=== PATIENT | male | born 1970 | race African-American/Black ===

== ENCOUNTER 2020-03-24 12:14 | Inpatient (IN) | payer SELFPAY ==
--- NOTE | 2020-03-24 12:54 | BHS.RME ---
Substance Use & Tx History - Substance Use History Heroin Substance amount: 10 bags Frequency of use: Daily Substance route: Inhalation (ex: sniffing or snorting) Date of Last Use: 03/23/20 (started age 29) Cocaine-Crack Substance amount: $50 Frequency of use: Daily Substance route: Smoking Date of Last Use: 03/23/20 (started age 25) Nicotine Substance amount: 1/2 pack Frequency of use: Daily Substance route: Smoking Date of Last Use: 03/24/20 (started age 16)
--- NOTE | 2020-03-24 14:23 | HP ---
COWS - Scale Resting Pulse: 0= CT 80 or Below Sweatin= Chills/Flushing Restless Observation: 1= Difficult to Sit Still Pupil Size: 1= Pupils >than Normal Bone or Joint Aches: 2= Severe Diffuse Aches Runny Nose/ Eye Tearin= Runny Nose/Eyes GI Upset > 30mins: 2= Nausea/Diarrhea Tremor Observation: 0= None Yawning Observation: 2= >3x During Session Anxiety or Irritability: 1=Feels Anxious/Irritable Goose Flesh Skin: 3=Piloerection COWS Score: 15 CIWA Score - Admission Criteria OASAS Guidelines: Admission for Medically Managed Detox: Requires at least one of the followin. CIWA greater than 12 2. Seizures within the past 24 hours 3. Delirium tremens within the past 24 hours 4. Hallucinations within the past 24 hours 5. Acute intervention needed for co occurring medical disorder 6. Acute intervention needed for co occurring psychiatric disorder 7. Severe withdrawal that cannot be handled at a lower level of care (continued vomiting, continued diarrhea, abnormal vital signs) requiring intravenous medication and/or fluids 8. Admitting History and Physical - Admission Chief Complaint: Pt is a 50 yo M presenting for detox from opioids; "detox from heroin." History of Present Illness: Pt is a 50 yo M presenting for detox from opioids; "detox from heroin." Pt has never been to [facility] before. Pt has been to several detox centers in the last 5 years; most recently you went to a detox in [place] in August. He completed detox and did not go to rehab after. Pt reports being sober for about 5 months; relapsed in January. Relapse was not triggered by any specific stressor or environment; pt reports "I just wanted to get high again." Pt reports that he is not in a methadone program; he occasionally buys methadone off the street (i.e. used methadone off the street this past Friday). Pt reports no overdoses in the past and does have Narcan at home. PMH - T2DM (metformin; possibly one more medication; takes medications regularly), HLD , HCV (dx 2007; treatment completed; pt reports it did not resolve the infection and that he needs to follow up with his infectious disease doctor about being treated again) PSH - none Psych - Bipolar Disorder, Chronic Depression (Prozac, Seroquel) Soc/Domiciled - lives with sister; without his own home currently Legal - none - Substance Use History Heroin Substance amount: 10 bags Frequency of use: Daily Substance route: Inhalation (ex: sniffing or snorting) Date of Last Use: 03/23/20 (started age 29) Cocaine-Crack Substance amount: $50 Frequency of use: Daily Substance route: Smoking Date of Last Use: 03/23/20 (started age 25) Nicotine Substance amount: 1/2 pack Frequency of use: Daily Substance route: Smoking Date of Last Use: 03/24/20 (started age 16) History Source: Patient Limitations to Obtaining History: No Limitations - Past Medical History Endocrine: Yes: Diabetes Mellitus Admission ROS [facility] - Ebola screening Have you traveled outside of the country in the last 21 days: No Have you been sick,other than usual withdrawal symptoms: No Do you have a fever: No - Review of Systems Constitutional: Chills, Diaphoresis, Changes in sleep (insomnia), Weakness (generalized weakness and faitgue), Unintentional Wgt. Loss (50 lbs over the last 2 years) EENT: reports: Nose Congestion, Other (rhinorrhea/lacrimation) Respiratory: reports: No Symptoms reported Cardiac: reports: No Symptoms Reported GI: reports: Diarrhea, Nausea, Abdominal cramping : reports: No Symptoms Reported Musculoskeletal: reports: Muscle Pain (diffuse muscle aches; mostly localized to arms) Integumentary: reports: No Symptoms Reported Neuro: reports: Other (piloerection) Endocrine: reports: No Symptoms Reported Hematology: reports: No Symptoms Reported Psychiatric: reports: Orientated x3, Agitated (restless), Anxious, Depressed (chronic) Patient History - Smoking Cessation Smoking history: Current every day smoker Have you smoked in the past 12 months: Yes Aproximately how many cigarettes per day: 10 Initiated information on smoking cessation: Yes 'Breaking Loose' booklet given: 03/24/20 Admission Physical Exam [facility] - Vital Signs Vital Signs: BP 130/82 HR 72 RR 20 T 97.4 O2 sat 99% - Physical General Appearance: Yes: No Apparent Distress, Nourished, Appropriately Dressed, Anxious HEENTM: Yes: EOMI, Hearing grossly Normal, Normocephalic, Normal Voice Respiratory: Yes: Lungs Clear, Normal Breath Sounds, No Respiratory Distress, No Accessory Muscle Use Neck: Yes: Supple, Trachea in good position Breast: Yes: Breast Exam Deferred Cardiology: Yes: Regular Rhythm, Regular Rate Abdominal: Yes: Normal Bowel Sounds, Non Tender, Flat, Soft Genitourinary: Yes: Other (deferred) Back: Yes: Normal Inspection Musculoskeletal: Yes: Gait Steady, Pelvis Stable Extremities: Yes: Normal Inspection, Normal Range of Motion, Non-Tender Neurological: Yes: Fully Oriented, Alert, Motor Strength 5/5, Normal Mood/Affect, Normal Response Integumentary: Yes: Normal Color, Dry, Warm, Other (piloerection) - Diagnostic (1) Opioid dependence Current Visit: Yes Status: Acute Qualifiers: Substance use status: in withdrawal Qualified Code(s): F11.23 - Opioid dependence with withdrawal (2) Cocaine dependence Current Visit: Yes Status: Acute Qualifiers: Substance use status: uncomplicated Qualified Code(s): F14.20 - Cocaine dependence, uncomplicated (3) Nicotine dependence Current Visit: Yes Status: Acute Qualifiers: Nicotine product type: cigarettes Substance use status: uncomplicated Qualified Code(s): F17.210 - Nicotine dependence, cigarettes, uncomplicated (4) HCV (hepatitis C virus) Current Visit: Yes Status: Acute Qualifiers: Viral hepatitis chronicity: unspecified Hepatic coma status: without hepatic coma Qualified Code(s): B19.20 - Unspecified viral hepatitis C without hepatic coma Comment: pt completed treatment but infection not resolved; reports he needs to follow up to be re-treated (5) Type 2 diabetes mellitus Current Visit: Yes Status: Chronic Qualifiers: Diabetes mellitus ferry terminal supervisor insulin use: without mcfp use Diabetes mellitus complication status: without complication Qualified Code(s): E11.9 - Type 2 diabetes mellitus without complications Cleared for Admission S - Detox or Rehab [facility] Level of Care: Medically Managed Detox Regimen/Protocol: Methadone Breathalyzer - Breathalyzer Breathalyzer: 0 Urine Drug Screen - Test Device Lot number: [id number] Expiration date: 09/21/21 - Control Is test valid?: Yes - Results Drug screen NEGATIVE: No Urine drug screen results: THC-Marijuana, SHANNON-Cocaine, FEN-Fentanyl, MOP-Opiates , MTD-Methadone Inpatient Rehab Admission - Rehab Decision to Admit Inpatient rehab admission?: No
[2020-03-24] MEDS ORDERED: MAGNESIUM HYDROX 2400MG/30ML ORAL SUSPENSION 30 ML CUP PO PRN (14:39)
[2020-03-24] MEDS ORDERED: IBUPROFEN 400 MG TABLET (FP) PO PRN (14:39)
[2020-03-24] MEDS ORDERED: BISMUTH SUBSALICYLATE 524 MG/30 ML UD PO PRN (14:39)
[2020-03-24] MEDS ORDERED: ACETAMINOPHEN 325 MG TABLET (FP) PO PRN ×2 (14:39)
[2020-03-24] MEDS ORDERED: ONDANSETRON *ODT* 4 MG TABLET SL PRN (14:39)
[2020-03-24] MEDS ORDERED: METHOCARBAMOL 500 MG TABLET PO PRN (14:39)
[2020-03-24] MEDS ORDERED: cloNIDine HCL 0.1 MG TABLET PO PRN (14:39)
[2020-03-24] MEDS ORDERED: NICOTINE POLACRILEX 2 MG GUM BUC PRN (14:39)
[2020-03-24] MEDS ORDERED: MAG HYDROX/AL HYDROX/SIMETH 30 ML UNIT-DOSE CUP PO PRN (14:39)
[2020-03-24] MEDS ORDERED: MENTHOL/PHENOL 1 EACH UD MM PRN (14:39)
[2020-03-24] MEDS ORDERED: MAGNESIUM CITRATE 300 ML BOTTLE PO PRN (14:39)
[2020-03-24 15:18] VITALS: BMI 19.5
--- OUTSIDE RECORDS SUMMARY | 2020-03-24 15:56 | XMS ---
:1970 Author Organization [facility] Support Name Relationship Address Phone UE Unavailable Unavailable Unavailable ANNA MURRAY SISTER [address] [place] [address] Re-disclosure Warning The records that you are about to access may contain information from federally- assisted alcohol or drug abuse programs. If such information is present, then the following federally mandated warning applies: This information has been disclosed to you from records protected by federal confidentiality rules (42 CFR part 2). The federal rules prohibit you from making any further disclosure of this information unless further disclosure is expressly permitted by the written consent of the person to whom it pertains or as otherwise permitted by 42 CFR part 2. A general authorization for the release of medical or other information is NOT sufficient for this purpose. The Federal rules restrict any use of the information to criminally investigate or prosecute any alcohol or drug abuse patient.The records that you are about to access may contain highly sensitive health information, the redisclosure of which is protected by Article 27-F of the [facility] Public Health law. If you continue you may haveaccess to information: Regarding HIV / AIDS; Provided by facilities licensed or operated by the [facility] Office of Mental Health; or Provided by the [facility] Office for People With Developmental Disabilities. If such information is present, then the following [facility] mandated warning applies: This information has been disclosed to you from confidential records which are protected by state law. State law prohibits you from making any further disclosure of this information without the specific written consent of the person to whom it pertains, or as otherwise permitted by law. Any unauthorized further disclosure in violation of state law may result in a fine or penitentiary sentence or both. A general authorization for the release of medical or other information is NOT sufficient authorization for further disclosure. Insurance Providers Payer name Policy type Policy ID Covered Covered alliance party's Policy P tere / Coverage alliance party ID relationship to Marcus Inf ormation type marcus [facility] [id number]
[2020-03-24] MEDS ORDERED: METHADONE HCL 10 MG TABLET (FOR DETOX USE ONLY) PO ONE (16:00)
[2020-03-24 16:25] LABS: HEMATOCRIT 46.9 % (35.4-49); HEMOGLOBIN 15.8 GM/dL (11.7-16.9); MCH 30.9 pg (25.7-33.7); MCHC 33.7 g/dl (32.0-35.9); MEAN CELL VOLUME 91.6 fl (80-96); MEAN PLT VOLUME 8.7 fl (7.5-11.1); PLATELET COUNT 167 K/MM3 (134-434); RBC 5.12 M/mm3 (4.00-5.60); RDW 13.4 % (11.9-15.9); WHITE BLOOD COUNT 5.8 K/mm3 (4.0-10.0)
[2020-03-24 16:36] LABS: BILIRUBIN,TOTAL 0.6 mg/dL (0.2-1); BLOOD UREA NITROGEN 13.5 mg/dL (7-18); CALCIUM 9.3 mg/dL (8.5-10.1); CREATININE 0.7 mg/dL (0.55-1.3); POTASSIUM 4.2 mmol/L (3.5-5.1); TOT PROT 7.8 g/dl (6.4-8.2)
[2020-03-24] MEDS: metFORMIN HCL 500 MG TABLET (FP) PO SCH (17:40)
[2020-03-24] MEDS: hydrOXYzine PAMOATE 25 MG CAPSULE (FP) PO SCH ×2 (17:40→22:57)
[2020-03-24] MEDS: NICOTINE 14 MG/24 HOURS TOPICAL PATCH TD SCH (17:41)
[2020-03-24] MEDS: THIAMINE HCL 100 MG TABLET (FP) PO SCH (22:57)
[2020-03-24] MEDS: MELATONIN 5 MG TABLETS PO SCH (22:58)
[2020-03-25] MEDS: hydrOXYzine PAMOATE 25 MG CAPSULE (FP) PO SCH ×5 (06:50→23:20)
[2020-03-25] MEDS: metFORMIN HCL 500 MG TABLET (FP) PO SCH ×2 (06:50→18:03)
--- NOTE | 2020-03-25 08:17 | EKG ---
Test Reason : Blood Pressure : / mmHG Vent. Rate : 064 BPM Atrial Rate : 064 BPM P-R Int : 148 ms QRS Dur : 074 ms QT Int : 448 ms P-R-T Axes : 072 057 059 degrees QTc Int : 462 ms NORMAL SINUS RHYTHM POSSIBLE LEFT ATRIAL ENLARGEMENT BORDERLINE ECG NO PREVIOUS ECGS AVAILABLE Confirmed by Hillary Leiva ([id number]) on 03/25/2020 8:16:46 AM Referred By: Confirmed By:Hillary Leiva
[2020-03-25] MEDS ORDERED: METHADONE HCL 10 MG TABLET (FOR DETOX USE ONLY) ONE (09:53)
[2020-03-25] MEDS ORDERED: METHADONE HCL 5 MG TABLET (FOR DETOX USE ONLY) ONE (09:53)
[2020-03-25] MEDS ORDERED: PRENATAL VITAMINS W/ FOLIC ACID TABLET (FP) PO SCH (10:00)
[2020-03-25] MEDS ORDERED: METHADONE (DETOX) 20 MG, METHADONE (DETOX) 5 MG PO ONE (10:00)
[2020-03-25] MEDS: NICOTINE 14 MG/24 HOURS TOPICAL PATCH TD SCH (10:45)
--- NOTE | 2020-03-25 11:54 | PN ---
BHS COWS - Scale Resting Pulse: 0= TN 80 or Below Sweatin= Chills/Flushing Restless Observation: 1= Difficult to Sit Still Pupil Size: 0= Normal to Room Light Bone or Joint Aches: 2= Severe Diffuse Aches Runny Nose/ Eye Tearin= None GI Upset > 30mins: 0= None Tremor Observation of Outstretched Hands: 2= Slight Tremor Visible Yawning Observation: 2= >3x During Session Anxiety or Irritability: 2=Irritable/Anxious Goose Flesh Skin: 0=Smooth Skin COWS Score: 10 BHS Progress Note (SOAP) Subjective: c/o chills, anxiety, muscle aches, and irritability. Objective: 03/25/20 11:53 Vital Signs 03/25/20 03/25/20 05:33 09:00 Temperature 98.2 F 98.4 F Pulse Rate 65 71 Respiratory 16 18 Rate Blood Pressure 129/83 130/89 O2 Sat by Pulse 100 Oximetry (%) Laboratory Last Values WBC 5.8 K/mm3 (4.0-10.0) 03/24/20 15:15 RBC 5.12 M/mm3 (4.00-5.60) 03/24/20 15:15 Hgb 15.8 GM/dL (11.7-16.9) 03/24/20 15:15 Hct 46.9 % (35.4-49) 03/24/20 15:15 MCV 91.6 fl (80-96) 03/24/20 15:15 MCH 30.9 pg (25.7-33.7) 03/24/20 15:15 MCHC 33.7 g/dl (32.0-35.9) 03/24/20 15:15 RDW 13.4 % (11.9-15.9) 03/24/20 15:15 Plt Count 167 K/MM3 (134-434) 03/24/20 15:15 MPV 8.7 fl (7.5-11.1) 03/24/20 15:15 Sodium 136 mmol/L (136-145) 03/24/20 15:15 Potassium 4.2 mmol/L (3.5-5.1) 03/24/20 15:15 Chloride 100 mmol/L (98-107) 03/24/20 15:15 Carbon Dioxide 30 mmol/L (21-32) 03/24/20 15:15 Anion Gap 6 MMOL/L (8-16) L 03/24/20 15:15 BUN 13.5 mg/dL (7-18) 03/24/20 15:15 Creatinine 0.7 mg/dL (0.55-1.3) 03/24/20 15:15 Est GFR (CKD-EPI)AfAm 129.34 03/24/20 15:15 Est GFR (CKD-EPI)NonAf 111.59 03/24/20 15:15 POC Glucometer 106 UNITS (80-120) 03/25/20 11:27 Random Glucose 63 mg/dL (74-106) L 03/24/20 15:15 Calcium 9.3 mg/dL (8.5-10.1) 03/24/20 15:15 Total Bilirubin 0.6 mg/dL (0.2-1) 03/24/20 15:15 AST 47 U/L (15-37) H 03/24/20 15:15 ALT 63 U/L (13-61) H 03/24/20 15:15 Alkaline Phosphatase 94 U/L (45-117) 03/24/20 15:15 Total Protein 7.8 g/dl (6.4-8.2) 03/24/20 15:15 Albumin 4.0 g/dl (3.4-5.0) 03/24/20 15:15 Syphilis Serology Non-reactive (NONREACTIVE) 03/24/20 15:15 Labs noted. Assessment: 03/25/20 11:54 AOX3, in no acute respiratory distress. Full ROM, ambulating in the unit. Withdrawal symptoms. Plan: continue detox.
--- NOTE | 2020-03-25 14:09 | CONSULT ---
[facility] Psychiatric Consult - Data Date of interview: 03/25/20 Admission source: [facility] Identifying data: Backup Administrative Coordinator approached patient twice for psychiatric consultation. On both occasions patient stated to specification writer, " I'm tired. I don't want to talk now." Psychiatric consultation refused. Please order another psychiatric consultation if requested by patient.
[2020-03-25] MEDS ORDERED: MASKS NR ONE (19:10)
--- NOTE | 2020-03-25 19:47 | DS ---
[facility] Detox Discharge Summary Admission Date: 03/24/20 Discharge Date: 03/25/20 (Administrative Discharge) - History Additional Comments: As per H&P "Pt is a 50 yo M presenting for detox from opioids; "detox from heroin." Pt has never been to [facility] before. Pt has been to several detox centers in the last 5 years; most recently you went to a detox in [place] in August. He completed detox and did not go to rehab after. Pt reports being sober for about 5 months; relapsed in January. Relapse was not triggered by any specific stressor or environment; pt reports "I just wanted to get high again." Pt reports that he is not in a methadone program; he occasionally buys methadone off the street (i.e. used methadone off the street this past Friday). Pt reports no overdoses in the past and does have Narcan at home. PMH - T2DM (metformin; possibly one more medication; takes medications regularly), HLD , HCV (dx 2007; treatment completed; pt reports it did not resolve the infection and that he needs to follow up with his infectious disease doctor about being treated again) PSH - none Psych - Bipolar Disorder, Chronic Depression (Prozac, Seroquel) Soc/Domiciled - lives with sister; without his own home currently". I was called to see this pt who was acting aggressive and requesting to go home. Condition 10 was called and upon arrival to the unit, this medical technical writer observed pt being very disruptive on the unit, screaming, throwing stuff (BP machine), and banging on the doors that he wants to leave. As per staff sonographer, pt requested for wipes and got upset whilst on the phone and threw the phone on the floor. Nursing motorcycle repair shop supervisor instructed a tech to call 911 which was done immediately. While waiting for the police to get there, pt went to another pt's room trying to break the window to get out, where [facility] security officers intervened. Pt opened the entrance door of the unit trying to leave, [facility] security officers intervened again and held him down to the floor until the [place] got there. Unable to perform any Physical examination due to pt's disruptive and aggressive behavior. Pertinent Past History: h/o heroin and cocaine use disorder. - Physical Exam Results Vital Signs: Vital Signs Temperature 98.1 F 03/25/20 16:56 Pulse Rate 67 03/25/20 16:56 Respiratory Rate 17 03/25/20 16:56 Blood Pressure 119/81 03/25/20 16:56 O2 Sat by Pulse Oximetry (%) 100 03/25/20 12:38 Vital Signs 03/25/20 03/25/20 12:38 16:56 Temperature 97.3 F L 98.1 F Pulse Rate 84 67 Respiratory 18 17 Rate Blood Pressure 120/85 119/81 O2 Sat by Pulse 100 Oximetry (%) Laboratory Last Values WBC 5.8 K/mm3 (4.0-10.0) 03/24/20 15:15 RBC 5.12 M/mm3 (4.00-5.60) 03/24/20 15:15 Hgb 15.8 GM/dL (11.7-16.9) 03/24/20 15:15 Hct 46.9 % (35.4-49) 03/24/20 15:15 MCV 91.6 fl (80-96) 03/24/20 15:15 MCH 30.9 pg (25.7-33.7) 03/24/20 15:15 MCHC 33.7 g/dl (32.0-35.9) 03/24/20 15:15 RDW 13.4 % (11.9-15.9) 03/24/20 15:15 Plt Count 167 K/MM3 (134-434) 03/24/20 15:15 MPV 8.7 fl (7.5-11.1) 03/24/20 15:15 Sodium 136 mmol/L (136-145) 03/24/20 15:15 Potassium 4.2 mmol/L (3.5-5.1) 03/24/20 15:15 Chloride 100 mmol/L (98-107) 03/24/20 15:15 Carbon Dioxide 30 mmol/L (21-32) 03/24/20 15:15 Anion Gap 6 MMOL/L (8-16) L 03/24/20 15:15 BUN 13.5 mg/dL (7-18) 03/24/20 15:15 Creatinine 0.7 mg/dL (0.55-1.3) 03/24/20 15:15 Est GFR (CKD-EPI)AfAm 129.34 03/24/20 15:15 Est GFR (CKD-EPI)NonAf 111.59 03/24/20 15:15 POC Glucometer 135 UNITS (80-120) 03/25/20 16:35 Random Glucose 63 mg/dL (74-106) L 03/24/20 15:15 Calcium 9.3 mg/dL (8.5-10.1) 03/24/20 15:15 Total Bilirubin 0.6 mg/dL (0.2-1) 03/24/20 15:15 AST 47 U/L (15-37) H 03/24/20 15:15 ALT 63 U/L (13-61) H 03/24/20 15:15 Alkaline Phosphatase 94 U/L (45-117) 03/24/20 15:15 Total Protein 7.8 g/dl (6.4-8.2) 03/24/20 15:15 Albumin 4.0 g/dl (3.4-5.0) 03/24/20 15:15 Syphilis Serology Non-reactive (NONREACTIVE) 03/24/20 15:15 Pertinent Admission Physical Exam Findings: withdrawal symptoms. - Treatment Hospital Course: Detox Protocol Followed - Medication Discharge Medications: Ambulatory Orders Fluoxetine HCl [Prozac -] 20 mg PO DAILY 03/24/20 Metformin HCl [Glucophage] 1,000 mg PO BID 03/24/20 Quetiapine Fumarate [Seroquel -] 100 mg PO HS 03/24/20 - Diagnosis (1) Cocaine dependence Current Visit: Yes Status: Acute Qualifiers: Substance use status: uncomplicated Qualified Code(s): F14.20 - Cocaine dependence, uncomplicated (2) Nicotine dependence Current Visit: Yes Status: Chronic Qualifiers: Nicotine product type: cigarettes Substance use status: uncomplicated Qualified Code(s): F17.210 - Nicotine dependence, cigarettes, uncomplicated (3) Opioid dependence Current Visit: Yes Status: Acute Qualifiers: Substance use status: in withdrawal Qualified Code(s): F11.23 - Opioid dependence with withdrawal (4) Type 2 diabetes mellitus Current Visit: Yes Status: Chronic Qualifiers: Diabetes mellitus watermelon inspector insulin use: without care home use Diabetes mellitus complication status: without complication Qualified Code(s): E11.9 - Type 2 diabetes mellitus without complications - AMA Did Patient Leave Against Medical Advice: No (Pt was discharged administ ratively.)
[2020-03-25 22:03] VITALS: BP 119/81; PULSE 67; TEMP 98.1
[2020-03-25] MEDS: THIAMINE HCL 100 MG TABLET (FP) PO SCH (23:20)
[2020-03-25] MEDS: MELATONIN 5 MG TABLETS PO SCH (23:20)
[2020-03-26] MEDS ORDERED: METHADONE HCL 10 MG TABLET (FOR DETOX USE ONLY) PO ONE (10:00)
[2020-03-27] MEDS ORDERED: METHADONE (DETOX) 10 MG, METHADONE (DETOX) 5 MG PO ONE (10:00)
--- NOTE | 2020-03-27 11:07 | PN ---
Teaching Attending Note Name of Resident: Yuridia Conner ATTENDING PHYSICIAN STATEMENT I saw and evaluated the patient. I reviewed the resident's note and discussed the case with the resident. I agree with the resident's findings and plan as documented. SUBJECTIVE: OBJECTIVE: ASSESSMENT AND PLAN: 1. Methadone detox protocol
[2020-03-28] MEDS ORDERED: METHADONE HCL 10 MG TABLET (FOR DETOX USE ONLY) PO ONE (10:00)
[2020-03-29] MEDS ORDERED: METHADONE HCL 5 MG TABLET (FOR DETOX USE ONLY) PO ONE (06:00)
== END 2020-03-25 19:15 | disposition home or self-care (01) | DRG 773 ==
LOC: YASAS 12:14 → Y3N 15:44
PROVIDERS: ADMIT Allergy & Immunology; ATTEND Allergy & Immunology
PROC: HZ2ZZZZ Detoxification Services for Substance Abuse Treatment (ICD-10-PCS; principal; 2020-03-24)
DX: F11.23 Opioid dependence with withdrawal (principal); F14.20 Cocaine dependence, uncomplicated; F17.210 Nicotine dependence, cigarettes, uncomplicated; F31.9 Bipolar disorder, unspecified; E78.5 Hyperlipidemia, unspecified; E11.9 Type 2 diabetes mellitus without complications; Z79.84 Long term (current) use of oral hypoglycemic drugs; Z86.19 Personal history of other infectious and parasitic diseases
CPT/HCPCS: 36415; 80053; 82962; 85027; 86780; 93005; 93010; C9803; U0003

== ENCOUNTER 2021-07-16 14:39 | Inpatient (IN) | payer OTHER ==
[2021-07-16] MEDS ORDERED: MAGNESIUM HYDROX 2400MG/30ML ORAL SUSPENSION 30 ML CUP PO PRN (16:46)
[2021-07-16] MEDS ORDERED: MAGNESIUM CITRATE 300 ML BOTTLE PO PRN (16:46)
[2021-07-16] MEDS ORDERED: ONDANSETRON *ODT* 4 MG TABLET SL PRN (16:46)
[2021-07-16] MEDS ORDERED: MAG HYDROX/AL HYDROX/SIMETH 30 ML UNIT-DOSE CUP PO PRN (16:46)
[2021-07-16] MEDS ORDERED: ACETAMINOPHEN 325 MG TABLET (FP) PO PRN ×2 (16:46)
[2021-07-16] MEDS ORDERED: NICOTINE POLACRILEX 2 MG GUM BUC PRN (16:46)
[2021-07-16] MEDS ORDERED: BISMUTH SUBSALICYLATE 524 MG/30 ML PO PRN (16:46)
[2021-07-16] MEDS ORDERED: MENTHOL/PHENOL 1 EACH UD MM PRN (16:46)
[2021-07-16] MEDS ORDERED: METHOCARBAMOL 500 MG TABLET PO PRN (16:46)
[2021-07-16] MEDS ORDERED: IBUPROFEN 400 MG TABLET (FP) PO PRN (16:46)
[2021-07-16 19:49] VITALS: BMI 22.1
[2021-07-16] MEDS ORDERED: THIAMINE HCL 100 MG TABLET (FP) PO SCH (22:00)
[2021-07-16 22:57] VITALS: BP 133/82; PULSE 75; TEMP 98.2
[2021-07-17] MEDS ORDERED: PRENATAL VITAMINS W/ FOLIC ACID TABLET (FP) PO SCH (10:00)
== END 2021-07-17 01:05 | disposition short-term general hospital (02) | DRG 773 ==
LOC: YASAS 14:39 → Y6N 20:30
PROVIDERS: ADMIT Allergy & Immunology; ATTEND Allergy & Immunology
PROC: HZ2ZZZZ Detoxification Services for Substance Abuse Treatment (ICD-10-PCS; principal; 2021-07-16)
DX: F11.20 Opioid dependence, uncomplicated (principal); F14.10 Cocaine abuse, uncomplicated; F12.20 Cannabis dependence, uncomplicated; F17.210 Nicotine dependence, cigarettes, uncomplicated; E11.9 Type 2 diabetes mellitus without complications; Z79.84 Long term (current) use of oral hypoglycemic drugs; Z91.018 Allergy to other foods
CPT/HCPCS: C9803; U0003; U0005